=== PATIENT | female | born 1995 | race Caucasian/White ===

== ENCOUNTER 2016-08-01 22:54 | Emergency (ER) | payer OTHER ==
[~2016-08-01] VITALS: Ht 157.5 cm; Wt 73.0 kg
[2016-08-01 22:56] VITALS: Ht 157.5 cm; Wt 73.0 kg
[2016-08-02] MEDS ORDERED: HYDR-906 PO (04:03)
[2016-08-02] MEDS ORDERED: IBUP-1542 PO (04:03)
[2016-08-02] MEDS ORDERED: SSD1C20 TOP (04:03)
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
[2016-08-02] MEDS ORDERED: HYDROCODONE/APAP (5/325) TAB PO ONE (04:30)
[2016-08-02] MEDS ORDERED: IBUPROFEN 600 MG TAB PO ONE (04:30)
[2016-08-02 04:55] VITALS: BP 117/74; PULSE 66; RESP 16
== END 2016-08-02 04:56 | disposition home or self-care (01) ==
LOC: FTE 22:54
DX: T23.101A Burn of first degree of right hand, unspecified site, initial encounter (principal); X10.2XXA Contact with fats and cooking oils, initial encounter; Y92.9 Unspecified place or not applicable
CPT/HCPCS: Z7610 ×2; 99284